=== PATIENT | female | born 1960 | race Caucasian/White ===

== ENCOUNTER → 2020-08-09 09:28 | Outpatient (BNVA) | payer MEDICARE, SELFPAY | PROVIDERS: PCP Registered Nurse; Visit Provider Specialist | DX: G40.909 Epilepsy, unspecified, not intractable, without status epilepticus (principal); R55 Syncope and collapse; Z87.891 Personal history of nicotine dependence | CPT/HCPCS: 99204 ==

== ENCOUNTER → 2020-09-04 10:09 | Outpatient (BNVA) | payer MEDICARE, MEDICAID, SELFPAY | PROVIDERS: PCP Registered Nurse; Visit Provider Specialist | DX: G40.909 Epilepsy, unspecified, not intractable, without status epilepticus (principal); Z87.891 Personal history of nicotine dependence | CPT/HCPCS: 95816 ==

== ENCOUNTER 2020-09-07 08:29 | Outpatient (CLI) | payer MEDICARE, MEDICAID, SELFPAY ==
--- NOTE | 2020-09-07 08:45 | USCV_ITS ---
Lor Wu Age: 60 Gender: F : 1960 Exam Date: 09/07/2020 09:04 Ordering Phys: Ivory Metcalf MD Technologist: Luz Domingo Exam Location: [facility] [place] Indication: syncope BP: / HR: 88 Rhythm: Sinus Technical Quality: Adequate MEASUREMENTS (Male / Female) Normal Values 2D ECHO LV Diastolic Diameter PLAX 3.5 cm 4.2 - 5.9 / 3.9 - 5.3 cm LV Systolic Diameter PLAX 2.2 cm LV Chamber Size 2.6 cm IVS Diastolic Thickness 0.8 cm 0.6 - 1.0 / 0.6 - 0.9 cm IVS Systolic Thickness 1.7 cm LVPW Diastolic Thickness 1.2 cm 0.6 - 1.0 / 0.6 - 0.9 cm LVPW Systolic Thickness 1.2 cm RV Chamber Size 2.8 cm LVOT Diameter 2.0 cm LV Ejection Fraction 2D Teich 67.8 % LV Ejection Fraction MOD 2C 20.2 % LV Ejection Fraction 2C AL 20.1 % LA Diameter 3.4 cm LA Width 2.6 cm LA Height 4.4 cm RA Width 3.5 cm RA Height 3.4 cm Aorta at Sinotubular Diameter 2.4 cm M-MODE LV Diastolic Diameter MM 3.0 cm 4.2 - 5.9 / 3.9 - 5.3 cm LV Systolic Diameter MM 1.7 cm LV Ejection Fraction MM Teich 75.8 % IVS Diastolic Thickness MM 0.6 cm 0.6 - 1.0 / 0.6 - 0.9 cm IVS Systolic Thickness MM 1.0 cm LVPW Diastolic Thickness MM 0.8 cm 0.6 - 1.0 / 0.6 - 0.9 cm LVPW Systolic Thickness MM 0.9 cm Aortic Annulus Diameter 2.7 cm LA Ao Ratio MM 1.4 MV E Point Septal Separation 0.3 cm DOPPLER AV Peak Velocity 111.0 cm/s LVOT Peak Velocity 87.0 cm/s AV Area Cont Eq vti 2.8 cm squared AV Area Cont Eq pk 2.5 cm squared MV Area PHT 4.4 cm squared Mitral E to A Ratio 0.8 MV E' Velocity 51.0 cm/s Mitral E to MV E' Ratio 9.5 Mitral E to LV E' Lateral Ratio 9.7 Mitral E to LV E' Septal Ratio 9.3 TR Peak Velocity 202.3 cm/s TR Peak Gradient 16.4 mmHg TR Mean Velocity 144.7 cm/s TR Mean Gradient 9.1 mmHg TR Velocity Time Integral 40.4 cm TV Peak E Velocity 60.0 cm/s Right Atrial Pressure 3.0 mmHg Pulmonary Artery Systolic Pressu 19.4 mmHg PV Peak Velocity 60.0 cm/s RV Acceleration Time 0.2 s RV Ejection Time 0.3 s RV AcT/ET 0.5 FINDINGS Left Ventricle Normal left ventricular size. Grossly LV systolic function is normal. Regional wall motion abnormalities can not be assessed because of poor visualization. Grade 1 diastolic dysfunction Right Ventricle The right ventricle is normal in size and function. Right Atrium The right atrium is normal in size. Possible pacemaker lead is seen Left Atrium The left atrium is normal in size. Mitral Valve Structurally normal mitral valve without significant stenosis or prolapse. There is mild to moderate mitral regurgitation. Aortic Valve Structurally normal aortic valve without significant sclerosis or stenosis. There is no aortic regurgitation. Tricuspid Valve Grossly normal without significant stenosis or regurgitation. Insufficient TR jet to calculate RVSP Pulmonic Valve Grossly normal Pericardium Normal pericardium without effusion. Aorta Normal ascending aorta dimension. CONCLUSIONS This is a limited quality echocardiogram because of poor ultrasonic windows LV systolic function is grossly normal. Regional wall motion abnormalities can not be assessed because of poor visualization Grade 1 diastolic dysfunction Mild to moderate mitral regurgitation No comparison studies are available Abelardo Ramirez MD (Electronically Signed) Final Date: 16 Sep 2020 14:28 S
== END 2020-09-07 08:30 | disposition home or self-care (01) ==
LOC: RAD 08:31
PROVIDERS: PCP Registered Nurse; Visit Provider Specialist
DX: R55 Syncope and collapse (principal); I51.81 Takotsubo syndrome; I34.0 Nonrheumatic mitral (valve) insufficiency
CPT/HCPCS: 93306